=== PATIENT | female | born 1955 | race Asian ===

== ENCOUNTER 2018-05-21 16:30 | Emergency (ER) | payer OTHER ==
[2018-05-21] MEDS: IPRATROPIUM (NEB) 0.5 MG/2.5 ML AMP INH (18:28)
[2018-05-21] MEDS: ALBUTEROL 0.5% (NEB) 2.5 MG/0.5 ML AMP INH (18:28)
[2018-05-21] MEDS: ONDANSETRON 4 MG INJ IV (18:40)
[2018-05-21] MEDS: SOD CHLORIDE 0.9% 1,000 ML IV (18:40)
[2018-05-21] MEDS: KETOROLAC 15 MG INJ IV (18:41)
[2018-05-21 18:42] LABS: HEMATOCRIT 40.5 % (37.0-47.0); HEMOGLOBIN 13.1 g/dl (12.0-16.0); MEAN CORPUSCULAR HEMOGLOBIN 29.4 pg (29.0-33.0); MEAN CORPUSCULAR HGB CONC 32.3 g/dl (32.0-37.0); MEAN PLATELET VOLUME 10.2 fl (7.4-10.4); PLATELET COUNT 188 10^3/UL (140-415); RED BLOOD COUNT 4.45 10^6/ul (4.20-5.40); RED CELL DISTRIBUTION WIDTH 12.2 % (11.5-14.5)
[2018-05-21 18:42] LABS: WHITE BLOOD COUNT 2.8 10^3/ul (4.8-10.8)
[2018-05-21 18:44] LABS: POSITIVE DIFF @See below
[2018-05-21 18:45] LABS: ADD MAN DIFF? YES
[2018-05-21 19:00] LABS: ANION GAP 9 (5-13); BLOOD UREA NITROGEN 13 mg/dl (7-20); CALCIUM 9.3 mg/dl (8.4-10.2); CARBON DIOXIDE 30 mmol/L (21-31); CHLORIDE 98 mmol/L (97-110); CREATININE 0.49 mg/dl (0.44-1.00); Estimated GFR > 60 mL/min (>60); GLUCOSE 138 mg/dl (70-220); POTASSIUM 3.9 mmol/L (3.5-5.1); SODIUM 137 mmol/L (135-144)
[2018-05-21 19:12] LABS: TROPONIN-I < 0.012 ng/ml (0.000-0.120)
[2018-05-21 21:19] LABS: BAND NEUTROPHILS #M 0.2 10^3/ul (0.0-0.6); BAND NEUTROPHILS % (M) 8 % (0-4); LYMPHOCYTES % (M) 38 % (15-51); METAMYELOCYTES %M 1 % (0-0); MONOCYTE #M 0.2 10^3/ul (0.3-0.9); MONOCYTES % (M) 9 % (0-11); MYELOCYTES % (M) 2 % (0-0); PLASMAC%(M) 1 % (0); PLATELET ESTIMATE NORMAL; REACTIVE LYMPHOCYTES% (M) 3 % (0-0); SEG NEUT #M 1.1 10^3/ul (1.6-7.5); SEGMENTED NEUTROPHILS (M) % 39 % (39-77); SMUDGE%M 4 % (0-0)
== END 2018-05-21 20:35 | disposition home or self-care (01) ==
LOC: E/R 16:30
DX: J40 Bronchitis, not specified as acute or chronic (principal); R11.2 Nausea with vomiting, unspecified
CPT/HCPCS: 71045; 80048; 84484; 85025; 87400; 93005; 94644; 96374; 96375; 99285-25

== ENCOUNTER 2018-08-22 11:42 | Emergency (ER) | payer OTHER ==
[2018-08-22] MEDS: IBUPROFEN 200 MG TAB PO (12:24)
[2018-08-22] MEDS ORDERED: POLYMYXIN/TRIMETHOPRIM 10 ML OPH LEFT EYE (12:30)
== END 2018-08-22 13:15 | disposition home or self-care (01) ==
LOC: FTE 11:42
DX: J32.9 Chronic sinusitis, unspecified (principal); H10.32 Unspecified acute conjunctivitis, left eye
CPT/HCPCS: 99283; Z7502